=== PATIENT | female | born 1985 | race Asian ===

== ENCOUNTER 2019-07-17 00:12 | Inpatient (IN) | payer OTHER ==
[2019-07-17] MEDS ORDERED: FENTANYL CITR 100 MCG/2 ML ONE (01:02)
[2019-07-17] MEDS ORDERED: ROPIVACAINE HCL 0 ML ONE (01:09)
[2019-07-17] MEDS ORDERED: ROPIVACAINE HCL 100 ML IV ONE (01:11)
[2019-07-17] MEDS ORDERED: Ringers Lactate 2,000 ML IV ONE (01:14)
[2019-07-17 01:39] LABS: Absolute Lymphocytes (CBC) 1.7 K/uL (0.7-4.9); Basophils % 0.1 % (0-1.3); Hematocrit 35.5 % (36.0-45.0); Lymphocytes % 15.2 % (15.3-44.8); MPV 9.3 fL (7.6-11.3); RBC Red Blood Cell Count 3.99 M/uL (3.86-4.86)
[2019-07-17] MEDS ORDERED: LIDOCAINE 1% MPF 30 ML VIAL ONE (02:38)
[2019-07-17] MEDS ORDERED: METHYLERGONOVINE 0.2MG/ML AMP IM ONE (02:39)
[2019-07-17] MEDS ORDERED: OXYTOCIN/LR 20 UNIT/1,000 ML BAG IV ONE (02:39)
[2019-07-17] MEDS ORDERED: METHYLERGONOVINE 0.2 MG TAB PO PRN (03:14)
[2019-07-17] MEDS ORDERED: ONDANSETRON 4 MG (ODT) TAB PO PRN (03:14)
[2019-07-17] MEDS ORDERED: METHYLERGONOVINE 0.2MG/ML AMP IM PRN (03:14)
[2019-07-17] MEDS ORDERED: CARBOPROST TROME 250 MCG/ML IM PRN (03:14)
[2019-07-17] MEDS ORDERED: ACETAMINOPHEN 500 MG TAB PO PRN (03:14)
--- NOTE | 2019-07-17 03:18 | P.BOP ---
Preoperative diagnosis: 39+wk , labor Postoperative diagnosis: same, delivery viable female infant Primary procedure: SCVD female Secondary procedure: repair of 1 degree midline laceration Estimated blood loss: 300ml Anesthesia: epidural Complications: None Transferred to: Other (271) Condition: Good
[2019-07-17 03:19] LABS: Urine Appearance CLOUDY; Urine Bilirubin NEGATIVE (NEG); Urine Blood 3+ (NEG); Urine Color YELLOW; Urine Glucose NEGATIVE (NEG); Urine Protein NEGATIVE (NEG); Urine Urobilinogen 0.2 mg/dL (0.2-1.0); Urine pH 6.5 (5.0-7.0)
[2019-07-17 03:41] LABS: Urine Culture Reflex Order REFLEXED
[2019-07-17 03:42] LABS: Urine Bacteria 20-50 /HPF (<20); Urine RBC <5 /HPF (NONE SEEN)
[2019-07-17] MEDS ORDERED: OXYTOCIN/LR 20 UNIT/1,000 ML BAG IV SCH (04:00)
--- NOTE | 2019-07-17 05:21 | PREOPHP ---
Date of Admission: 07/17/2019 History Of Present Illness: Ms. See is a 33-year-old female 5, para 3-0- 1-3, now at 39 plus weeks' gestation and she is being followed by me during this without co mplications. She thought she noted rupture of membranes with contractions and presents to Labor and Delivery for evaluation. SROM could not be determined, but she was 4 cm dilated and regularly contra cting so was admitted. Past Medical History: Please see record. Family History: Please see record. Review of Systems: She reports no recent cough, cold, fever, or chills. No recent nausea or vomiting. Infant has been active. She denies any bowel or bladder issues. Physical Examination: General: Pleasant female, in no apparent distress. Neck: Supple without adenopathy or thyromegaly. Lungs: Clear. Cardiac: Regular rate and rhythm without murmurs. Breasts: Not examined. Abdomen: Estimated weight 7 to 8 pounds. Pelvic: Now cervix 4+ cm, 90% effaced, vertex, at 0 station. Extremities: Trace lower extremity edema. Impression: Term , active labor. Plan: Epidural has been placed. We will await spontaneous delivery. RICARDO/DWAINE Voice ID: [id number]
[2019-07-17 06:14] VITALS: BMI 31.3
[2019-07-17] MEDS: IBUPROFEN 200 MG TAB PO PRN ×2 (06:30→17:33)
--- NOTE | 2019-07-17 06:51 | DN ---
Surgeon: Klaus Charlton MD Ms. See is a 33-year-old female, 5, para 3-0-1-3, now at 39 weeks gestati on, admitted with possible rupture of membranes in active labor, noted to be 4 cm. After placement o f epidural catheter, she had a first stage of labor of approximately 3 hours, second stage of labor o f 10 minutes, delivered by spontaneous controlled vaginal delivery of a 7-pound 6-ounce female . was delivered vertex OA after delayed cord clamping. This was clamped and cut and the infa nt placed on mother's upper abdomen. Cord blood was obtained. The placenta was spontaneously expell ed and appeared to be intact. Intrauterine examination revealed no retained placental fragments. A small first-degree midline laceration was noted, was repaired with 3-0 Vicryl suture. Estimated tota l blood loss was less than 300 mL. RICARDO/DWAINE Voice ID: [id number] Report ID: [id number]
[2019-07-17] MEDS: Oxycodone HCl/Acetaminophen 1 TAB TAB PO PRN ×3 (08:45→22:33)
[2019-07-17] MEDS ORDERED: Oxycodone HCl/Acetaminophen 1 TAB TAB ONE (08:58)
[2019-07-17] MEDS ORDERED: INFLUENZA VACCINE (for 3y+) 0.5 ML DOSE IMVAC ONE (09:00)
[2019-07-17 20:54] LABS: RPR (Rapid Plasma Reagin) NON-REACT (NON-REACT)
[2019-07-18] MEDS: Oxycodone HCl/Acetaminophen 1 TAB TAB PO PRN ×2 (03:40→08:01)
[2019-07-18] MEDS ORDERED: IBUPROFEN 400 MG TAB ONE (03:41)
[2019-07-18 07:14] VITALS: BP 129/82; TEMP 97.9
[2019-07-18] MEDS ORDERED: INFLUENZA VACCINE (for 3y+) 0.5 ML DOSE IMVAC ONE (07:50)
[2019-07-22 02:52] LABS: HBsAG Nonreactive (Nonreactive)
--- NOTE | 2019-07-22 10:15 | DS ---
Date of Discharge: 07/18/2019 Final Hospital Discharge Diagnosis: Term , delivered. Complications: None. Procedures: Placement of epidural catheter, Pitocin augmentation of labor, spontaneous controlled va ginal delivery of viable female . Hospital Course: The patient is a 33-year-old female, 5, para 3-0-1-[address] [facility], admitted in active labor. She had an uneventful labor and delivery with epidural anesthesia and delivered a 7 pound 6 ounce female , 8 and 9. She was dismissed on the first day, ambulatory, on a select diet with routine post vaginal delivery activity restrictions. Lab wor k included admission hemoglobin and hematocrit of 35.5, dismissal of 34.4. She has Rh positive blood type. Rubella immune. Nonreactive RPR. She was dismissed to be seen back in my office in 7 days w ith prescription for Tylenol No.3 #5 for pain relief and to continue taking her iron and vit amins. RICARDO/DWAINE Voice ID: [id number] Report ID: [id number]
== END 2019-07-18 09:40 | disposition home or self-care (01) | DRG 807 ==
LOC: L&D 00:12 → 2ND-WC 00:51
PROVIDERS: ADMIT Specialist; ATTEND Specialist
PROC: 10E0XZZ Delivery of Products of Conception, External Approach (ICD-10-PCS; principal; 2019-07-17)
PROC: 0HQ9XZZ Repair Perineum Skin, External Approach (ICD-10-PCS; 2019-07-17)
DX: O70.0 First degree perineal laceration during delivery (principal); Z37.0 Single live birth; Z3A.39 39 weeks gestation of pregnancy; Z23 Encounter for immunization
CPT/HCPCS: 36415; 81001; 85014; 85025; 86592; 86901; 87086; 87088; 87340; 90471; 99218; J2210; J2590; J2795; J3010; Q2035